=== PATIENT | female | born 1965 | race Caucasian/White ===

== ENCOUNTER 2016-11-13 10:11 | Emergency (ER) | payer OTHER ==
[~2016-11-13] VITALS: Ht 160 cm; Wt 126.1 kg
[~2016-11-13 10:11] MED LIST: ALDACTONE25 MG; ALDACTONE25 MG PO; BACTRIMDS PO; BENADRYL25 M3 PO; CARDIZEM60 M1 PO; CIPRO500 MG; CIPRO500 MG PO; CYMBALTA60 MG PO; DIAVAN PO; DIOVAN PO; DIOVAN320 MG PO; DIOVAN40 MG; DUONEB 3 MG/3 ML3 ML IH; DURAGESIC50 MCG/HR TD; FUROSEMIDE40 M1 PO; GABAPENTIN600 MG PO; GAVAPENTIN PO; HYDROCODONE BIT PO; LAMICTAL100 M1; LAMICTAL200 MG PO; LASIX; LASIX PO; LASIX40 M1; NORCO 10/325 MG1 TAB PO; PRADAXA150 MG PO; PREDNISOLONE PO; PREDNISONE20 M1 PO; PREDNISONE25 MG; PROAIR HFA0.09 MG/Ac IH; PROTONIX40 MG PO; PROZAC20 MG PO; SEPTRA 200 MG/480 ML; SIMBALTA PO; SINGULAIR10 MG PO; SINGULAIR5 MG; SUBOXONE 8 MG-21 FIL SL; XARELTO15 MG PO; XOPENEX0.63 MG/3 INH; XOPENEX1.25 MG/0. INH
[2016-11-13 10:23] VITALS: BP 132/68
[2016-11-13] MEDS ORDERED: DIOVAN160 M1 PO (10:28)
[2016-11-13] MEDS ORDERED: CATAPRES0.2 MG PO (10:28)
--- NOTE | 2016-11-13 10:29 | NUR ---
Patient ambulated to bed 6. RN evaluating patient at bedside.
--- NOTE | 2016-11-13 10:30 | NUR ---
PATIENT PRESENTS TO ED WITH C/O HEADACHE, N/V, CLAMMY SKIN, AND HYPERTENSION . PT STATES . DENIES COUGH, DIARRHEA, NO CP SKIN IS PINK/COOL AND CLAMMY; AAOX4 WITH EVEN AND STEADY GAIT; LUNGS CLEAR BL; HR TACHY; PT DENIES ANY FEVER, CP, SOB, OR COUGH AT THIS TIME; PATIENT STATES PAIN OF 10/10 AT THIS TIME; VSS; PATIENT POSITIONED FOR COMFORT; HOB ELEVATED; BEDRAILS UP X2; BED DOWN. ER MD MADE AWARE OF PT STATUS.
[2016-11-13] MEDS ORDERED: LORazepam 2 MG/ML VIAL IM ONE (11:10)
[2016-11-13] MEDS ORDERED: ONDANSETRON 4 MG ODT PO ONE (11:25)
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
--- NOTE | 2016-11-13 12:24 | NUR ---
Dr. Greer re-evaluating patient at bedside.
[2016-11-13] MEDS ORDERED: DIAZEPAM PFS 10 MG/2 ML SYR IM ONE (12:25)
--- NOTE | 2016-11-13 12:32 | NUR ---
PT CONTINUES TO FEEL ANXIOUS---TAPPING FEET REPEATEDLY, ADMITS TO FEELING SEVERELY ANXIOUS
--- NOTE | 2016-11-13 12:40 | NUR ---
MEDICATED WRITTEN, WILL CONTINUE TO OBSERVE FOR CHANGES IN ANXIETY AND CONTRERAS
[2016-11-13 14:24] VITALS: BP 126/81
--- NOTE | 2016-11-13 14:24 | NUR ---
Patient discharged with v/s stable. Written and verbal after care instructions given and explained. Patient alert, oriented and verbalized understanding of instructions. Ambulatory with steady gait. All questions addressed prior to discharge. ID band removed. Patient advised to follow up with PMD. Rx of VALIUM given. Patient educated on indication of medication including possible reaction and side effects. Opportunity to ask questions provided and answered.
== END 2016-11-13 14:24 | disposition home or self-care (01) ==
LOC: MED 10:33
DX: F41.0 Panic disorder [episodic paroxysmal anxiety] (principal); J45.909 Unspecified asthma, uncomplicated; J44.9 Chronic obstructive pulmonary disease, unspecified; K21.9 Gastro-esophageal reflux disease without esophagitis; I11.0 Hypertensive heart disease with heart failure; I50.9 Heart failure, unspecified; Z88.0 Allergy status to penicillin; Z88.1 Allergy status to other antibiotic agents; Z88.6 Allergy status to analgesic agent; Z88.8 Allergy status to other drugs, medicaments and biological substances; Z79.899 Other long term (current) drug therapy
CPT/HCPCS: 82948; 96372; 99284; J2060; J3360; S0119

== ENCOUNTER 2016-11-16 09:05 | Inpatient (IN) | payer OTHER ==
[~2016-11-16] VITALS: Ht 160 cm; Wt 125.6 kg
[~2016-11-16 09:05] MED LIST changes: +ALBU-136 IH; -ALDACTONE25 MG; -ALDACTONE25 MG PO; -BACTRIMDS PO; -BENADRYL25 M3 PO; -CARDIZEM60 M1 PO; -CIPRO500 MG; -CIPRO500 MG PO; +CLON0.2T43 PO; -CYMBALTA60 MG PO; -DIAVAN PO; +DILT60TA55 PO; -DIOVAN PO; -DIOVAN320 MG PO; -DIOVAN40 MG; +DIPH25TA53 PO; -DUONEB 3 MG/3 ML3 ML IH; -DURAGESIC50 MCG/HR TD; +FLUO-387 PO; -FUROSEMIDE40 M1 PO; -GABAPENTIN600 MG PO; -GAVAPENTIN PO; -HYDROCODONE BIT PO; +LAM200 PO; -LAMICTAL100 M1; -LAMICTAL200 MG PO; -LASIX; -LASIX PO; -LASIX40 M1; +MONT10TA35 PO; -NORCO 10/325 MG1 TAB PO; -PRADAXA150 MG PO; -PREDNISOLONE PO; -PREDNISONE20 M1 PO; -PREDNISONE25 MG; -PROAIR HFA0.09 MG/Ac IH; -PROTONIX40 MG PO; -PROZAC20 MG PO; -SEPTRA 200 MG/480 ML; -SIMBALTA PO; -SINGULAIR10 MG PO; -SINGULAIR5 MG; -SUBOXONE 8 MG-21 FIL SL; +VALS160T2 PO; -XARELTO15 MG PO; -XOPENEX0.63 MG/3 INH; -XOPENEX1.25 MG/0. INH
[2016-11-16 09:20] VITALS: BP 161/94
--- NOTE | 2016-11-16 09:30 | NUR ---
PATIENT PRESENTS TO ED WITH C/O VOMITING AND DIARRHEA X LATE LAST NIGHT; DIZZINESS; ; SKIN IS PINK/WARM/DRY; AAOX4 WITH EVEN AND STEADY GAIT; LUNGS CLEAR BL; HR EVEN AND REGULAR; PT DENIES ANY FEVER, CP, SOB, OR COUGH AT THIS TIME; PATIENT STATES PAIN OF 6/10 AT THIS TIME; VSS; PATIENT POSITIONED FOR COMFORT; HOB ELEVATED; BEDRAILS UP X2; BED DOWN. ER MD MADE AWARE OF PT STATUS.
[2016-11-16] MEDS ORDERED: NACL 0.9% 1,000 ML IV SCH (09:53)
[2016-11-16] MEDS ORDERED: ONDANSETRON 4 MG/2 ML VIAL IVP ONE ×2 (09:55→10:55)
[2016-11-16] MEDS ORDERED: FAMOTIDINE 20 MG/2 ML VIAL IVP ONE (09:55)
[2016-11-16 10:27] LABS: BASOPHILS # (AUTO) 0.1 K/uL (0.00-0.22); BASOPHILS % (AUTO) 1.1 % (0.0-2.0); EOSINOPHILS # (AUTO) 0.2 K/uL (0-0.4); EOSINOPHILS % (AUTO) 1.7 % (0.0-4.0); HEMATOCRIT 46.3 % (36-48); HEMOGLOBIN 14.8 g/dL (12.0-16.0); LYMPHOCYTES # (AUTO) 1.4 K/uL (2.5-16.5); LYMPHOCYTES % (AUTO) 11.2 % (20.5-51.1); MEAN CORPUSCULAR HEMOGLOBIN 26 pg (27-31); MEAN CORPUSCULAR HGB CONC 32 g/dL (33-37); MEAN CORPUSCULAR VOLUME 80 fL (80-94); MONOCYTES # (AUTO) 0.4 K/uL (0.8-1.0); MONOCYTES % (AUTO) 3.6 % (1.7-9.3); NEUTROPHILS # (AUTO) 10.1 K/uL (1.8-7.7); NEUTROPHILS % (AUTO) 82.4 % (42.2-75.2); PLATELET COUNT (AUTO) 277 K/uL (140-450); RED CELL DISTRIBUTION WIDTH 15.8 % (11.6-13.7)
[2016-11-16 10:31] LABS: ANION GAP 10.8 (8-16); CALCIUM 8.8 mg/dL (8.5-10.1); CARBON DIOXIDE 31.8 mmol/L (21-32); CREATININE 1.4 mg/dL (0.6-1.3); POTASSIUM 3.6 mmol/L (3.5-5.1)
[2016-11-16 10:37] LABS: ALBUMIN 3.7 g/dL (3.4-5.0); MAGNESIUM 2.1 mg/dL (1.8-2.4); TOTAL BILIRUBIN 0.5 mg/dL (0.0-1.0); TOTAL PROTEIN, SERUM 8.1 g/dL (6.4-8.2)
[2016-11-16 10:45] LABS: WHITE BLOOD COUNT (AUTO) 12.2 K/uL (4.8-10.8)
--- NOTE | 2016-11-16 11:06 | NUR ---
PT C/O ABDOMINAL PAIN.POSITION TO COMFORT.DR DOWNING NOTIFIED.
[2016-11-16] MEDS ORDERED: NACL 0.9% 1,000 ML IV ONE (11:30)
[2016-11-16] MEDS ORDERED: MORPHINE SULFATE 4 MG/ML SYR IVP ONE (11:30)
--- NOTE | 2016-11-16 12:12 | NUR ---
AAO PT WITH STILL C/O N/V NOTIFIED
[2016-11-16] MEDS ORDERED: PROMETHAZINE 25 MG/ML VIAL IM ONE (12:15)
--- NOTE | 2016-11-16 12:20 | NUR ---
IM PHENERGAN GIVEN PER MD'S ORDER
--- NOTE | 2016-11-16 12:34 | NUR ---
LEFT HAND IV INFILTRATED, NOTIFIED, AWAITING ORDERS
--- NOTE | 2016-11-16 12:55 | NUR ---
TALKED TO JOSIANE MADE AWARE PT STILL VERY NAUSEOUS, ANXIOUS, RESTLESS AND MOANING, AT BEDSIDE, WENT TO BEDSIDE AND TALKED TO PT AND .
--- NOTE | 2016-11-16 13:01 | NUR ---
PT IN BEDPAN AT THIS TIME PT AWARE NEED URINE
--- NOTE | 2016-11-16 13:20 | NUR ---
UNABLE TO PROVIDE URINE AT THIS TIME, NOTIFIED
--- NOTE | 2016-11-16 13:20 | NUR ---
REPORT GIVEN TO TORRES MORRISON
[2016-11-16 13:30] VITALS: BP 168/116
--- NOTE | 2016-11-16 13:30 | NUR ---
PT ARRIVED TO UNIT VIA GURNEY. PT AMBULATED TO BED WITH STEADY GAIT. PT IS AAOX4, PT ON ROOM AIR WITH NO S/S OF DISTRESS NOTED. IV TO RIGHT FA #24, PATENT AND INTACT. PT FEELING NAUSEATED. NO PAIN INDICATED. ALL SAFETY PRECAUTIONS IN PLACE, SIDE RAILSX2, BED IN LOW POSITION, AND CALL LIGHT WITHIN REACH. WILL CONTINUE TO MONITOR.
--- NOTE | 2016-11-16 13:30 | NUR ---
Patient will be admitted to care of DR CAMACHO. Admited to [facility]. Will go to room 111B. Belongings list completed. Report to TORRES MIRANDA.
[2016-11-16] MEDS ORDERED: ONDANSETRON 4 MG/2 ML VIAL IVP PRN (13:45)
[2016-11-16] MEDS ORDERED: HYDROmorphone 1 MG/ML AMP IVP PRN (13:45)
[2016-11-16] MEDS ORDERED: ALBUTEROL 0.083% 2.5 MG/3 ML NEBU INH PRN (13:45)
--- NOTE | 2016-11-16 13:50 | NUR ---
PAGED DR CAMACHO, AWAITING CALLBACK.
[2016-11-16] MEDS: POTASSIUM CHL 10 MEQ/D5-1/2NS 1,000 ML IV SCH ×2 (14:03→23:45)
--- NOTE | 2016-11-16 14:08 | NUR ---
PT TOLERATED IV FLUIDS WELL.
--- NOTE | 2016-11-16 14:31 | NUR ---
TALKED TO DR CAMACHO, WILL FOLLOW UP ON ORDERS.
[2016-11-16] MEDS ORDERED: MORPHINE SULFATE 4 MG/ML SYR IVP PRN (14:35)
[2016-11-16] MEDS: PROMETHAZINE 25 MG/ML VIAL IVP PRN ×2 (14:52→21:02)
[2016-11-16] MEDS: LORazepam 2 MG/ML VIAL IVP PRN (15:00)
--- NOTE | 2016-11-16 15:04 | NUR ---
PT C/O NAUSEA AND VOMITING. PT ANXIOUS AND CRYING. ADMINISTERED PHENERGAN AND ATIVAN ORDERED. WILL CONTINUE TO MONITOR.
--- NOTE | 2016-11-16 15:24 | NUR ---
PT C/O 06/21. BP 158/85, HR 113. ADMINISTERED MORPHINE ORDERED.
[2016-11-16 16:00] VITALS: BP 148/84
--- NOTE | 2016-11-16 16:27 | NUR ---
PT SLEEPING NO DISTRESS NOTED.
--- NOTE | 2016-11-16 17:00 | NUR ---
PT CONTINUES TO VOMIT AND COMPLAINS OF NAUSEA. WILL PAGE DR CAMACHO.
--- NOTE | 2016-11-16 17:10 | NUR ---
TALKED TO DR CAMACHO, NO OTHER MEDICATIONS TO BE GIVEN. MD ORDERED BRAT DIET TO BE STARTED. WILL FOLLOW UP ON ORDERS.
--- NOTE | 2016-11-16 17:30 | NUR ---
DR VIGIL IN TO SEE PT.
[2016-11-16] MEDS ORDERED: METOCLOPRAMIDE 10 MG/2 ML INJ VIAL IVP PRN (17:55)
[2016-11-16] MEDS ORDERED: NACL 0.9% IVP SCH (18:11)
[2016-11-16] MEDS ORDERED: METOCLOPRAMIDE IVP SCH (18:11)
--- NOTE | 2016-11-16 18:29 | NUR ---
NURSE CALLED TO BEDSIDE. PT VOMITED ON BED SHEETS, SHEETS TO BE CHANGED.
--- NOTE | 2016-11-16 18:50 | NUR ---
RADIOLOGY IN TO SEE PT.
--- NOTE | 2016-11-16 19:36 | NUR ---
ENDORSED CARE TO TORRES AMARAL. PT IN STABLE CONDITION.
--- NOTE | 2016-11-16 19:37 | NUR ---
RECEIVED PT IN STABLE CONDITION FROM RUBEN Ward RN. NO SOB, NO SIGNS OF DISTRESS. IV TO RT FA 24G PATENT, ASYMPTOMATIC, INTACT, IVF RUNNING. PT WITH 200 ML EMESIS. SKIN IS INTACT. PT IS AOX4, AMBULATORY. PT C/O PAIN IN ABDOMEN AND REQUESTING PHENERGAN, WILL MEDIATE PER MD ORDER. EDUCATED PT THAT WE NEED A URINE SAMPLE, PT VERBALIZED UNDERSTANDING. PLAN OF CARE DISCUSSED WITH PT. SAFETY MEASURES IN PLACE. CALL LIGHT WITHIN REACH. WILL CONTINUE TO MONITOR.
[2016-11-16] MEDS ORDERED: MONTELUKAST SODIUM 10 MG TAB PO SCH (21:00)
[2016-11-16] MEDS: VALSARTAN 80 MG TAB PO SCH (21:03)
[2016-11-16] MEDS: DILTIAZEM 60 MG TAB PO SCH (21:03)
--- NOTE | 2016-11-16 21:03 | NUR ---
PT TOLERATED DUE MEDS WELL. MEDICATED PT WITH BENADRYL AND PHENERGAN PRN PER MD ORDER. NO SOB, NO SIGNS OF DISTRESS. IV SITE ASYMPTOMATIC, INTACT, PATENT, FLUSHED, IVF RUNNING. PLAN OF CARE DISCUSSED WITH PT. SAFETY MEASURES IN PLACE. CALL LIGHT WITHIN REACH. WILL CONTINUE TO MONITOR.
--- NOTE | 2016-11-16 21:48 | NUR ---
FOUND PT WITH IV PULLED OUT, PT C/O IV SITE HURTING, MINIMAL BLEEDING NOTED, APPLIED DRESSING. ATTEMPTED TO START NEW IV WITH NO SUCCESS, NOTIFIED CUT ROLL MACHINE OFFBEARER LINDA, STATED SHE WILL TRY TO START AN IV FOR PT LATER.
--- NOTE | 2016-11-16 23:00 | NUR ---
FILLING STATION ATTENDANT MIKAELA ABLE TO GAIN IV ACCESS TO LT UPPER ARM 24G PATENT, ASYMPTOMATIC, INTACT, STARTED IVF RUNNING. PT C/O HEADACHE AND REQUESTING ATIVAN AND IBUPROFEN, PT MADE AWARE THAT ATIVAN IS NOT DUE UNTIL 299. TOLD PT I WILL PAGE MD PER PTS REQUEST FOR MEDS.
--- NOTE | 2016-11-16 23:06 | NUR ---
SPOKE WITH MD DOUG MD MADE AWARE OF PT C/O SEVERE HEADACHE AND REQUESTING IBUPROFEN AND MD AASHISH GAVE ORDER FOR IBUPROFEN. WILL CARRY OUT.
[2016-11-16] MEDS ORDERED: IBUPROFEN 800 MG TAB PO PRN (23:10)
[2016-11-17] VITALS: BP 150/80
--- NOTE | 2016-11-17 00:08 | NUR ---
VS STABLE ON ROOM AIR. NO SOB, NO SIGNS OF DISTRESS. IV SITE ASYMPTOMATIC, INTACT, PATENT, IVF RUNNING. PLAN OF CARE DISCUSSED WITH PT. SAFETY MEASURES IN PLACE. CALL LIGHT WITHIN REACH. WILL CONTINUE TO MONITOR.
--- NOTE | 2016-11-17 02:00 | NUR ---
PT C/O ABD PAIN AND REQUESTED ZOFRAN AND ATIVAN, TOLD PT SHE DOES NOT HAVE ZOFRAN, BUT HAS PHENERGAN AND ATIVAN DUE AT 0300 AND THAT I WILL BRING IT TO HER WHEN DUE, PT VERBALIZED UNDERSTANDING. NO SOB, IV SITE ASYMPTOMATIC, INTACT, PATENT, IVF RUNNING. PLAN OF CARE DISCUSSED WITH PT. SAFETY MEASURES IN PLACE. CALL LIGHT WITHIN REACH. WILL CONTINUE TO MONITOR.
[2016-11-17] MEDS: LORazepam 2 MG/ML VIAL IVP PRN ×2 (03:07→18:10)
[2016-11-17] MEDS: PROMETHAZINE 25 MG/ML VIAL IVP PRN ×2 (03:07→18:09)
--- NOTE | 2016-11-17 03:07 | NUR ---
MEDICATED PT FOR RESTLESSNESS AND NAUSEA PER MD ORDER. PT TOLERATED WELL. NO SOB, NO SIGNS OF DISTRESS. IV SITE ASYMPTOMATIC, INTACT, PATENT, IVF RUNNING. PLAN OF CARE DISCUSSED WITH PT. SAFETY MEASURES IN PLACE. CALL LIGHT WITHIN REACH. WILL CONTINUE TO MONITOR.
--- NOTE | 2016-11-17 03:34 | NUR ---
PT KEEPS TURNING OFF IV PUMP, REQUESTED PT NOT TO TOUCH OR TURN OFF IV PUMP. PT STATED IT KEEPS BEEPING AND THAT IS WHY SHE KEEPS TURNING IT OFF. EDUCATED PT NOT TO APPLY PRESSURE TO HER ARM AND IT WILL NOT OCCLUDE IV PUMP. PT VERBALIZED UNDERSTANDING.
[2016-11-17 06:34] LABS: HEMATOCRIT 45.8 % (36-48); HEMOGLOBIN 14.6 g/dL (12.0-16.0); MEAN CORPUSCULAR HEMOGLOBIN 26 pg (27-31); MEAN CORPUSCULAR HGB CONC 32 g/dL (33-37); MEAN CORPUSCULAR VOLUME 82 fL (80-94); PLATELET COUNT (AUTO) 257 K/uL (140-450); RED BLOOD CELL COUNT(AUTO) 5.61 MIL/uL (4.20-5.40); RED CELL DISTRIBUTION WIDTH 15.9 % (11.6-13.7); WHITE BLOOD COUNT (AUTO) 14.6 K/uL (4.8-10.8)
[2016-11-17 06:48] LABS: ALBUMIN 3.5 g/dL (3.4-5.0); ANION GAP 10.6 (8-16); CALCIUM 8.8 mg/dL (8.5-10.1); CARBON DIOXIDE 31.1 mmol/L (21-32); POTASSIUM 3.7 mmol/L (3.5-5.1); TOTAL BILIRUBIN 0.6 mg/dL (0.0-1.0); TOTAL PROTEIN, SERUM 7.8 g/dL (6.4-8.2)
[2016-11-17 07:04] LABS: BAND % (MANUAL) 2 % (0-8); LYMPHOCYTES % (MANUAL) 16 % (20-46); MONOCYTES % (MANUAL) 6 % (5-12); NEUTROPHILS % (MANUAL) 76 (43-65)
--- NOTE | 2016-11-17 07:05 | NUR ---
ENDORSED PT IN STABLE CONDITION TO TORRES BELTRAN. ALL NEEDS HAVE BEEN MET AT THIS TIME.
--- NOTE | 2016-11-17 07:10 | NUR ---
RECEIVED REPORT FROM LEAD LEVEL DESIGNER RN. PT IS SLEEPING. NO S/S OF ACUTE CARDIAC/RESPIRATORY DISTRESS OR DISCOMFORT. SAFETY MEASURES IN PLACE, CALL LIGHT WITHIN REACH. WILL CONTINUE PLAN OF CARE, AND CONTINUE TO MONITOR.
[2016-11-17 08:00] VITALS: BP 169/99
--- NOTE | 2016-11-17 08:35 | NUR ---
PATIENT HAS BEEN SCREENED AND CATEGORIZED HIGH NUTRITION RISK. PATIENT WILL BE SEEN WITHIN 1-2 DAYS OF ADMISSION. 11/17/16-11/18/[address]
[2016-11-17] MEDS ORDERED: FAMOTIDINE 20 MG/2 ML VIAL IV SCH (09:00)
[2016-11-17] MEDS ORDERED: FLUoxetine 20 MG CAP PO SCH (09:00)
[2016-11-17] MEDS ORDERED: ENOXAPARIN 40 MG/0.4 ML SYR SUBQ SCH (09:00)
[2016-11-17] MEDS: POTASSIUM CHL 10 MEQ/D5-1/2NS 1,000 ML IV SCH (09:45)
[2016-11-17] MEDS: VALSARTAN 80 MG TAB PO SCH (09:50)
[2016-11-17] MEDS: DILTIAZEM 60 MG TAB PO SCH (09:50)
[2016-11-17] MEDS: MORPHINE SULFATE 4 MG/ML SYR IVP PRN ×2 (09:51→18:09)
[2016-11-17] MEDS: ONDANSETRON 4 MG/2 ML VIAL IVP PRN ×2 (09:51→18:10)
--- NOTE | 2016-11-17 10:00 | NUR ---
PT TOLERATED AM MEDS WELL. NO S/S OF ACUTE DISTRESS OR DISCOMFORT. CALL LIGHT WITHIN REACH, WILL CONTINUE TO MONITOR.
--- NOTE | 2016-11-17 12:19 | NUR ---
11/17/16 RD INITIAL ASSESSMENT COMPLETED PLEASE REFER TO NUTRITION ASSESSMENT UNDER CARE ACTIVITY FOR ESTIMATED NUTRITIONAL NEEDS. RD RECOMMENDATIONS: 1. CONTINUE NPO MEDICALLY NECESSARY PER MD 2. WHEN MEDICALLY APPROPRIATE CONSIDER ADVANCE DIET TOLERATED TO SOFT, CARDIAC D/T GI ISSUES 3. RD WILL F/U 3-5 DAYS; MODERATE RISK. RHEA SEARS RD
--- NOTE | 2016-11-17 13:30 | NUR ---
PT IS RESTING. PT HAS NO S/S OF ACUTE DISTRESS OR DISCOMFORT. CALL LIGHT WITHIN REACH. WILL CONTINUE TO MONITOR.
[2016-11-17] MEDS ORDERED: diphenhydrAMINE 50 MG/ML VIAL ONE (13:52)
[2016-11-17] MEDS ORDERED: fentaNYL 0.05 MG/ML VIAL ONE (13:52)
[2016-11-17] MEDS ORDERED: MIDAZOLAM 2 MG/2 ML VIAL ONE (13:52)
[2016-11-17] MEDS ORDERED: MIDAZOLAM 2 MG/2 ML VIAL IVP ONE ×2 (14:45→14:50)
[2016-11-17] MEDS ORDERED: fentaNYL 0.05 MG/ML VIAL IVP ONE (14:45)
[2016-11-17] MEDS ORDERED: diphenhydrAMINE 50 MG/ML VIAL IVP ONE (14:45)
[2016-11-17 16:30] VITALS: BP 151/99
--- NOTE | 2016-11-17 16:30 | NUR ---
SS NOTE: PER MAXIME FROM [facility] ([phone]), THEY ARE ABLE TO ACCEPT PT AND WILL SEND A NURSE TO SEE PT AT HOME TOMORROW.
--- NOTE | 2016-11-17 17:00 | NUR ---
PT AND AWARE OF HOME HEALTH SERVICE, [facility], FOR TOMORROW. PT DOES NOT FEEL COMFORTABLE TO GO HOME. PT STATES SHE CONTINUES TO VOMIT AND CAN NOT TOLERATE LIQUIDS. DR CAMACHO MADE AWARE AND INFORMED THE PATIENT OF INSURANCE MOST LIKELY WILL NOT COVER COST DUE TO DISCHARGE ORDER. RECOMMENDED TO DR CAMACHO TO HOLD DISCHARGE UNTIL TOMORROW, DR CAMACHO REFUSED. PT AWARE AND WILL GO HOME TODAY.
--- NOTE | 2016-11-17 19:10 | NUR ---
DISCHARGE INSTRUCTION PROVIDED, PT VERBALIZED UNDERSTANDING. DISCHARGE PAPERWORK SIGNED, PROVIDED A COPY. ARM BANDS REMOVED, IV REMOVED, INTACT. NO S/S OF ACUTE DISTRESS OR DISCOMFORT. PT IN STABLE CONDITION. PT WHEELCHAIRED TO FRONT LOBBY.
== END 2016-11-17 19:10 | disposition home health service (06) | DRG 392 ==
LOC: MED 09:05 → MTU 13:08
PROVIDERS: ADMIT Family Medicine; ATTEND Family Medicine
PROC: 0DB68ZX Excision of Stomach, Via Natural or Artificial Opening Endoscopic, Diagnostic (ICD-10-PCS; principal; 2016-11-17 14:15)
DX: K29.60 Other gastritis without bleeding (principal); N17.9 Acute kidney failure, unspecified; Z68.42 Body mass index [BMI] 45.0-49.9, adult; I13.0 Hypertensive heart and chronic kidney disease with heart failure and stage 1 through stage 4 chronic kidney disease, or unspecified chronic kidney disease; I50.32 Chronic diastolic (congestive) heart failure; N18.9 Chronic kidney disease, unspecified; D72.829 Elevated white blood cell count, unspecified; G89.4 Chronic pain syndrome; E66.01 Morbid (severe) obesity due to excess calories; G47.33 Obstructive sleep apnea (adult) (pediatric); J44.9 Chronic obstructive pulmonary disease, unspecified; J45.909 Unspecified asthma, uncomplicated; M54.5 Low back pain; K44.9 Diaphragmatic hernia without obstruction or gangrene; K21.0 Gastro-esophageal reflux disease with esophagitis; F41.1 Generalized anxiety disorder; F12.90 Cannabis use, unspecified, uncomplicated; W18.30XA Fall on same level, unspecified, initial encounter; Y93.89 Activity, other specified; Y92.89 Other specified places as the place of occurrence of the external cause; Y99.8 Other external cause status; Z88.1 Allergy status to other antibiotic agents; Z88.5 Allergy status to narcotic agent; Z88.0 Allergy status to penicillin; Z88.8 Allergy status to other drugs, medicaments and biological substances; Z91.09 Other allergy status, other than to drugs and biological substances; Z79.899 Other long term (current) drug therapy; Z90.49 Acquired absence of other specified parts of digestive tract; Z28.21 Immunization not carried out because of patient refusal
CPT/HCPCS: 36415; 74000; 80053; 82948; 83690; 83735; 85025; 86677; 87081; 93005; 96372; 96374; 96375; 99285; J1200; J1650; J2060; J2250; J2270; J2405; J2550; J2765; J3010; J3490; J7030; Q0163

== ENCOUNTER 2016-11-18 15:33 | Observation (INO) | payer OTHER ==
[~2016-11-18] VITALS: Ht 160 cm; Wt 125.6 kg
[~2016-11-18 15:33] MED LIST changes: -ALBU-136 IH; +ALDACTONE25 MG; +ALDACTONE25 MG PO; +BACTRIMDS PO; +BENADRYL25 M3 PO; +CARDIZEM60 M1 PO; +CATAPRES0.2 MG PO; +CIPRO500 MG; +CIPRO500 MG PO; -CLON0.2T43 PO; +CYMBALTA60 MG PO; +DIAVAN PO; -DILT60TA55 PO; +DIOVAN PO; +DIOVAN160 M1 PO; +DIOVAN320 MG PO; +DIOVAN40 MG; -DIPH25TA53 PO; +DUONEB 3 MG/3 ML3 ML IH; +DURAGESIC50 MCG/HR TD; -FLUO-387 PO; +FUROSEMIDE40 M1 PO; +GABAPENTIN600 MG PO; +GAVAPENTIN PO; +HYDROCODONE BIT PO; -LAM200 PO; +LAMICTAL100 M1; +LAMICTAL200 MG PO; +LASIX; +LASIX PO; +LASIX40 M1; -MONT10TA35 PO; +NORCO 10/325 MG1 TAB PO; +PRADAXA150 MG PO; +PREDNISOLONE PO; +PREDNISONE20 M1 PO; +PREDNISONE25 MG; +PROAIR HFA0.09 MG/Ac IH; +PROTONIX40 MG PO; +PROZAC20 MG PO; +SEPTRA 200 MG/480 ML; +SIMBALTA PO; +SINGULAIR10 MG PO; +SINGULAIR5 MG; +SUBOXONE 8 MG-21 FIL SL; -VALS160T2 PO; +XARELTO15 MG PO; +XOPENEX0.63 MG/3 INH; +XOPENEX1.25 MG/0. INH
[2016-11-18 15:49] VITALS: BP 156/137
--- NOTE | 2016-11-18 16:49 | NUR ---
PT TO BED 8 AT THIS TIME.
[2016-11-18] MEDS ORDERED: PROMETHAZINE 25 MG/ML VIAL IVP ONE ×2 (16:55→18:20)
[2016-11-18] MEDS ORDERED: NACL 0.9% 1,000 ML IV ONE (16:55)
--- NOTE | 2016-11-18 16:59 | NUR ---
51/F BIB TO ED PT STS WAS DISCHARGED FROM [facility] LAST NIGHT FOR HTN AND ABD PAIN. PT STATES SHE HAS BEEN VOMITING EVER SINCE LAST NIGHT WITH SEVERE ABD PAIN. GAGGING NOTED WITH ABD GUARDING. BOWEL SOUNDS HYPERACTIVE, SOFT AND ROUND. PT PLACED ON MONITOR. DR. SANCHES MADE AWARE.
--- NOTE | 2016-11-18 17:10 | NUR ---
20G IV TO LFA VIA ULTRASOUND IV. PT NICOLE WELL. AT BEDSIDE.
--- NOTE | 2016-11-18 17:51 | NUR ---
Patient being evaluated by physician at bedside.
--- NOTE | 2016-11-18 18:10 | NUR ---
PT LAYING ON IV. IV TO LFA INFILTRATE. DR. SANCHES MADE AWARE. IV DC'D. 20G IV TO RAC VIA ULTASOUND GUIDED IV. PT NICOLE WELL. NO S/S OF INFILTRATION. BLOOD DRAWN BACK, FLUSHES WELL. IV SECURED CIRCUMFERENTIALLY.
--- NOTE | 2016-11-18 18:45 | NUR ---
# 14 FR STRAIGHT catheter utilizing sterile technique. Immediate return of 100 ml ELIAN urine noted. Bedside drainage bag placed below level of bladder. Urine sample collected and sent to lab. Pt tolerated procedure WELL.
--- NOTE | 2016-11-18 19:29 | NUR ---
Patient will be admitted to care of DR. CAMACHO. Admited to TELE. Will go to room 118. Belongings list completed. Report to TORRES WAGNER.
--- NOTE | 2016-11-18 19:38 | NUR ---
PT ARRIVED TO UNIT IN ROOM 118. PT NOT ABLE TO WALK AT THIS TIME DUE TO C.O. ABDOMINAL PAIN. ASSISTED TO BED.
--- NOTE | 2016-11-18 19:45 | NUR ---
SHIFT ASSESSMENT DONE AT THIS TIME. PT IS A/O X4, NO ACUTE S/S OF DISTRESS. PT ABLE TO FOLLOW COMMANDS AND VERBALIZED NEEDS. DISCUSSED PLAN OF CARE WITH PT, VERBALIZED UNDERSTANDING. ORIENTED TO UNIT. VITAL SIGNS ARE STABLE, PT ON ROOM AIR WITH OXYGEN SATURATION AT 94%. PT C.O. ABDOMINAL PAIN, WILL ADMINISTER, SEE eMAR. NO NAUSEA OR VOMITING AT THIS TIME. LUNG SOUNDS ARE CLEAR, BOWEL SOUNDS ARE ACTIVE. IV ACCESS TO LEFT INDEX FINGER #24G, PATENT AND INTACT. SKIN NOTED INTACT, ONLY NOTED ABDOMINAL FOLD REDNESS, APPLIED INTER DRY. APPLIED SCD'S. SAFETY PRECAUTIONS IMPLEMENTED. CALL LIGHT WITHIN REACH. WILL CONTINUE TO MONITOR PT. ALLERGY AND ID BAND ON.
[2016-11-18 20:26] VITALS: BP 150/67
--- NOTE | 2016-11-18 20:33 | NUR ---
SPOKE TO DR. CAMACHO REGARDING PT AND ORDERS, NEW ORDERS RECEIVED.
[2016-11-18] MEDS ORDERED: LORazepam 2 MG/ML VIAL IVP PRN (20:35)
[2016-11-18] MEDS ORDERED: MORPHINE SULFATE 4 MG/ML SYR ONE (20:49)
[2016-11-18] MEDS ORDERED: INTERDRY CLOTH TP SCH (20:50)
[2016-11-18] MEDS: MORPHINE SULFATE 4 MG/ML SYR IVP PRN (20:50)
[2016-11-18] MEDS: NACL 0.45% 1,000 ML IV SCH (20:51)
[2016-11-18] MEDS: ONDANSETRON 4 MG/2 ML VIAL IVP PRN (22:40)
--- NOTE | 2016-11-18 22:40 | NUR ---
PROVIDED PT WITH ANTIEMETIC FOR NAUSEA, SEE eMAR.
[2016-11-19] VITALS: BP 140/72
--- NOTE | 2016-11-19 00:05 | NUR ---
PT VITAL SIGNS REMAIN STABLE. NO S/S OF ACUTE DISTRESS NOTED. CALL LIGHT WITHIN REACH.
--- NOTE | 2016-11-19 02:02 | NUR ---
PT NOTED SLEEPING AT THIS TIME, NO S/S OF ACUTE DISTRESS. CALL LIGHT WITHIN REACH.
[2016-11-19 04:00] VITALS: BP 149/77
--- NOTE | 2016-11-19 04:10 | NUR ---
PT VITAL SIGNS REMAIN STABLE. PT C.O. NAUSEA, WILL ADMINISTER ANTIEMETIC, SEE eMAR. CALL LIGHT WITHIN REACH. NO ACUTE DISTRESS.
[2016-11-19] MEDS: ONDANSETRON 4 MG/2 ML VIAL IVP PRN (04:18)
[2016-11-19] MEDS: MORPHINE SULFATE 4 MG/ML SYR IVP PRN (06:02)
[2016-11-19] MEDS: NACL 0.45% 1,000 ML IV SCH (06:03)
--- NOTE | 2016-11-19 06:10 | NUR ---
PROVIDED PT WITH PAIN MEDICATION, SEE eMAR.
--- NOTE | 2016-11-19 07:15 | NUR ---
ENDORSED PT TO KATERYNA RN AT BEDSIDE FOR CONTINUITY OF CARE.
--- NOTE | 2016-11-19 07:30 | NUR ---
RECEIVED PT RESTING COMFORTABLY IN BED, AAOX4, ABLE TO VERBALIZE NEEDS; NO COMPLAINTS OF PAIN, SOB, OR S/S ACUTE DISTRESS AT THIS TIME. ROUTINE/PLAN OF CARE DISCUSSED AND REVIEWED, PT VERBALIZES UNDERSTANDING AND COMPLIANCE. IVF INFUSING TO LEFT INDEX FINGER, SITE ASYMPTOMATIC. BILATERAL SCD'S NOTED. INTERDRY TO ABD FOLD REDNESS. SAFETY PRECAUTIONS OBSERVED AND MAINTAINED, ENCOURAGED PT TO CALL FOR ASSISTANCE NEEDED.
--- NOTE | 2016-11-19 07:51 | NUR ---
PATIENT HAS BEEN SCREENED AND CATEGORIZED HIGH NUTRITION RISK. PATIENT WILL BE SEEN WITHIN 1-2 DAYS OF ADMISSION. 11/19/16-11/20/[address]
[2016-11-19 08:00] VITALS: BP_SYST 103; BP_DIAS 59; BP_DIAS 73
--- NOTE | 2016-11-19 08:59 | NUR ---
VSS, PT RESTING QUIETLY. ADMINISTERED ROUTINE MEDICATION ORDERED WITH EDUCATION, PT TOLERATED WELL. PT WENT BACK TO SLEEP AT THIS TIME. ENCOURAGED TO CALL FOR ASSISTANCE NEEDED. WILL CONTINUE TO MONITOR.
[2016-11-19] MEDS ORDERED: PANTOPRAZOLE 40 MG INJ VIAL IVP SCH (09:00)
[2016-11-19] MEDS ORDERED: INTERDRY CLOTH TP PRN (10:55)
--- NOTE | 2016-11-19 10:58 | NUR ---
WOUND CARE EVALUATION NOTES: REASON FOR EVALUATION: ABDOMINAL FOLDS REDNESS COMPLETE SKIN ASSESSMENT DONE ON THIS 51 Y/O FEMALE PATIENT FROM HOME TO [facility], WITH INITIAL DIAGNOSIS OF INTRACTABLE VOMITING. PAST MEDICAL HISTORY INCLUDE ASTHMA, COPD, CHF, HYPERTENSION. ALL ABOVE INFORMATION WAS OBTAINED FROM THE ADMISSION H&P. LABS ARE WBC 11.2, H/H 14.1/43.7, GLUCOSE 107 AND ALBUMIN 3.2. CURRENT MEDS INCLUDE ATIVAN AND MORPHINE. PATIENT IS AWAKE, ORIENTED TO PERSON, PLACE, DATE AND TIME. SKIN WARM TO TOUCH WNL, TOENAILS WNL, NO EDEMA, WITH HAIR GROWTH AND +2 BILATERAL PEDAL PULSES. URINE AND BOWEL CONTINENT, ABLE TO AMBULATE TO THE RESTROOM CLAIMED. ABLE TO MAKE HER NEEDS KNOWN. ABLE TO TURN SELF WITHOUT ASSISTANCE. INITIAL PLAN OF CARE AND PRESSURE PREVENTIVE MEASURES DISCUSSED, ABLE TO VERBALIZE UNDERSTANDING. INTEGUMENTARY: BUE - MULTIPLE ECCHYMOSIS - SCATTERED PURPLE, SOME ARE FADING ABDOMINAL FOLDS - INTERTRIGINOUS DERMATITIS - RED AND MOIST RECOMMENDATIONS: -ABDOMINAL FOLDS: CLEANSE WITH MILD SOAP AND WATER, PAT DRY, APPLY INTERDRY CLOTH Q 7 DAYS AND PRN WITH SOILING/DISPLACEMENT. CHECK DRESSING PLACEMENT DAILY --TURN AND REPOSITION PATIENT Q2H -ASSESS AND MONITOR SKIN CONDITION DURING POSITION CHANGE, PLEASE PAY PARTICULAR ATTENTION TO SACRALCOCCYX, ELBOWS AND HEELS -OFFLOAD BILATERAL HEELS BY PLACING PILLOWS UNDER CALVES AT ALL TIMES, UNLESS OTHERWISE CONTRAINDICATED -KEEP SKIN CLEAN AND DRY AT ALL TIMES. RECOMMENDATIONS DISCUSSED WITH PRIMARY RN. NO FOLLOW UP NEEDED AT THIS TIME. PLEASE CONTACT [facility] FOR ANY CONCERNS, QUESTIONS AND CHANGES IN SKIN CONDITION.
--- NOTE | 2016-11-19 11:57 | NUR ---
11/19/16 RD INITIAL ASSESSMENT COMPLETED PLEASE REFER TO NUTRITION ASSESSMENT UNDER CARE ACTIVITY FOR ESTIMATED NUTRITIONAL NEEDS. RD RECOMMENDATIONS: 1. CONTINUE BRAT DIET TOLERATED PER MD 2. IF PT TOLERATING CURRENT DIET CONSIDER ADVANCE DIET TOLERATED TO REGULAR 3. RD WILL F/U 3-5 DAYS; MODERATE RISK. RHEA SEARS RD
[2016-11-19 12:00] VITALS: BP 103/59
--- NOTE | 2016-11-19 12:00 | NUR ---
VSS. NO COMPLAINTS OR S/S ACUTE DISTRESS.
--- NOTE | 2016-11-19 12:30 | NUR ---
PT SEEN AND ASSESSED BY DR CAMACHO AT BEDSIDE, DISCUSSED PT CONDITION AND DC PLAN. DC ORDERS ACKNOWLEDGED AND CARRIED OUT.
--- NOTE | 2016-11-19 14:00 | NUR ---
PT TOLERATED LUNCH WELL, NO C/O ABD PAIN OR N/V/D. CALLED PT'S AT THIS TIME PER PT REQUEST.
[2016-11-19 14:13] VITALS: BP 103/59
--- NOTE | 2016-11-19 14:50 | NUR ---
PT ARRIVED. DISCHARGE INSTRUCTIONS AND EDUCATION GIVEN AND DISCUSSED AT BEDSIDE, PT VERBALIZES UNDERSTANDING AND SIGNS ALL FORMS. PT PREPARING FOR DC.
--- NOTE | 2016-11-19 15:19 | NUR ---
DISCHARGED PT HOME AT THIS TIME IN STABLE CONDITION WITH .
== END 2016-11-19 15:20 | disposition home or self-care (01) ==
LOC: MED 15:33 → MTU 19:08
PROVIDERS: ADMIT Family Medicine; ATTEND Family Medicine
DX: R10.9 Unspecified abdominal pain (principal); R11.2 Nausea with vomiting, unspecified; D72.829 Elevated white blood cell count, unspecified; R31.29 Other microscopic hematuria; G89.4 Chronic pain syndrome; M54.5 Low back pain; E66.01 Morbid (severe) obesity due to excess calories; G47.33 Obstructive sleep apnea (adult) (pediatric); I50.32 Chronic diastolic (congestive) heart failure; I11.0 Hypertensive heart disease with heart failure
CPT/HCPCS: 36415; 71010; 80053; 80305; 81001; 83690; 85025; 87081; 87086; 96361; 96374; 96375; 96376; 99285; C9113; G0378; J2060; J2270; J2405; J2550; J7030

== ENCOUNTER 2016-11-23 11:12 | Outpatient (CLI) | payer OTHER | END 2016-11-23 22:32 | disposition home or self-care (01) | LOC: MLB 11:12 | PROVIDERS: ATTEND Family Medicine | DX: Z00.00 Encounter for general adult medical examination without abnormal findings (principal); R10.9 Unspecified abdominal pain; N28.9 Disorder of kidney and ureter, unspecified; R06.02 Shortness of breath ==

== ENCOUNTER 2018-02-28 04:39 | Emergency (ER) | payer OTHER, MEDICAID ==
[~2018-02-28 04:39] MED LIST changes: +ALBU-136 IH; -ALDACTONE25 MG; -ALDACTONE25 MG PO; -BACTRIMDS PO; -BENADRYL25 M3 PO; -CARDIZEM60 M1 PO; -CATAPRES0.2 MG PO; -CIPRO500 MG; -CIPRO500 MG PO; +CLON0.2T43 PO; -CYMBALTA60 MG PO; -DIAVAN PO; +DILT60TA55 PO; -DIOVAN PO; -DIOVAN160 M1 PO; -DIOVAN320 MG PO; -DIOVAN40 MG; +DIPH25TA53 PO; -DUONEB 3 MG/3 ML3 ML IH; -DURAGESIC50 MCG/HR TD; +FLUO-387 PO; -FUROSEMIDE40 M1 PO; -GABAPENTIN600 MG PO; -GAVAPENTIN PO; -HYDROCODONE BIT PO; +LAM200 PO; -LAMICTAL100 M1; -LAMICTAL200 MG PO; -LASIX; -LASIX PO; -LASIX40 M1; +MONT10TA35 PO; -NORCO 10/325 MG1 TAB PO; -PRADAXA150 MG PO; -PREDNISOLONE PO; -PREDNISONE20 M1 PO; -PREDNISONE25 MG; -PROAIR HFA0.09 MG/Ac IH; -PROTONIX40 MG PO; -PROZAC20 MG PO; -SEPTRA 200 MG/480 ML; -SIMBALTA PO; -SINGULAIR10 MG PO; -SINGULAIR5 MG; -SUBOXONE 8 MG-21 FIL SL; +VALS160T2 PO; -XARELTO15 MG PO; -XOPENEX0.63 MG/3 INH; -XOPENEX1.25 MG/0. INH
--- NOTE | 2018-02-28 04:40 | NUR ---
SEE DOWNTIME CHARTING.
[2018-02-28] MEDS ORDERED: ONDANSETRON 4 MG/2 ML VIAL ONE (05:14)
[2018-02-28] MEDS ORDERED: MORPHINE SULFATE 2 MG/ML SYR ONE (05:15)
[2018-02-28] MEDS ORDERED: MORPHINE SULFATE 4 MG/ML SYR ONE (05:16)
--- NOTE | 2018-02-28 06:00 | NUR ---
[facility] CHARTING BACK ONLINE
[2018-02-28] MEDS ORDERED: MORPHINE SULFATE 4 MG/ML SYR IVP ONE (06:25)
[2018-02-28] MEDS ORDERED: DICYCLOMINE HCL LIQUID 20 MG, ALUMINUM HYD/MAG/SIMETHICONE 30 ML, LIDOCAINE VISCOUS 2% ... PO ONE ×3 (06:25)
[2018-02-28 06:28] LABS: RED BLOOD CELL COUNT(AUTO) 5.51 MIL/uL (4.20-5.40); WHITE BLOOD COUNT (AUTO) 11.6 K/uL (4.8-10.8)
[2018-02-28 06:29] LABS: ANION GAP 12.5 (8-16); BASOPHILS % (AUTO) 0.2 % (0.0-2.0); EOSINOPHILS % (AUTO) 0.6 % (0.0-4.0); HEMATOCRIT 45.2 % (36-48); LYMPHOCYTES % (AUTO) 9.8 % (20.5-51.1); MEAN CORPUSCULAR HEMOGLOBIN 27 pg (27-31); MEAN CORPUSCULAR HGB CONC 33 g/dL (33-37); MEAN CORPUSCULAR VOLUME 82.2 fL (80-94); MONOCYTES % (AUTO) 3.5 % (1.7-9.3); NEUTROPHILS # (AUTO) 9.9 K/uL (1.8-7.7); NEUTROPHILS % (AUTO) 85.9 % (42.2-75.2); PLATELET COUNT (AUTO) 207 K/uL (140-450); POTASSIUM 3.5 mmol/L (3.5-5.1); RED CELL DISTRIBUTION WIDTH 16.4 % (11.6-13.7)
[2018-02-28 06:30] LABS: APPEARANCE,URINE HAZY (CLEAR); COLOR,URINE YELLOW (YELLOW)
[2018-02-28 06:30] LABS: ALBUMIN 3.5 g/dL (3.4-5.0); CREATININE 0.8 mg/dL (0.6-1.3); EOSINOPHILS # (AUTO) 0.1 K/uL (0-0.4); LYMPHOCYTES # (AUTO) 1.1 K/uL (2.5-16.5); MONOCYTES # (AUTO) 0.4 K/uL (0.8-1.0); TOTAL BILIRUBIN 0.6 mg/dL (0.0-1.0)
[2018-02-28 06:31] LABS: BILIRUBIN,URINE NEGATIVE (NEGATIVE); BLOOD, URINE TRACE (NEGATIVE); LEUKOCYTE ESTERASE ,URINE NEGATIVE (NEGATIVE); NITRITE, URINE POSITIVE (NEGATIVE); UGLUCOSE NEGATIVE (NEGATIVE)
[2018-02-28 06:31] LABS: PROTHROMBIN TIME 11.6 secs (10.8-13.4)
[2018-02-28 06:32] LABS: RBC,URINE 3-10 (FEW) /HPF (0-5); WBC,URINE 0-5 (RARE) /HPF (0-5)
--- NOTE | 2018-02-28 06:50 | NUR ---
DR BENNETT AT BEDSIDE FOR ULTRA-SOUND ASSISTED IV INSERTION. 20G IV INSERTED SUCCESSFULLY ON L AC. PT TOLERATED WELL.
--- NOTE | 2018-02-28 06:54 | NUR ---
PT TAKEN TO CT AT THIS TIME
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
--- NOTE | 2018-02-28 07:16 | NUR ---
RECEIVED REPORT FROM TORRES ATWOOD. TRANSFER OF CARE AT THIS TIME.
--- NOTE | 2018-02-28 07:22 | NUR ---
PT. BACK FROM CT , AMBULATED TO RESTROOM, IN BED RESTING, SAFETY PRECAUTIONS IN PLACE. B/P 186/104, ER NOTIFIED, NO FURTHER ORDERS AT THIS TIME WILL CONTINUE TO MONITOR.
[2018-02-28 08:02] LABS: BARBITURATE, URINE NEG. ng/ml (NEG <=200); BENZODIAZEPINE, URINE POS. ng/mL (NEG <=200); CANNABINOID, URINE POS. ng/mL (NEG <=50); COCAINE, URINE NEG. ng/mL (NEG <=300); OPIATE, URINE NEG. ng/mL (NEG <=2000); PHENCYCLIDINE SCREEN,URINE NEG. ng/mL (NEG <=25)
--- NOTE | 2018-02-28 08:30 | NUR ---
PT. RESTING COMFORTABLY IN BED, RR EVEN AND UNLABORED. BED IN LOWEST POSITION. WILL CONTINUE TO MONITOR.
[2018-02-28 08:45] VITALS: BP 190/99
--- NOTE | 2018-02-28 08:45 | NUR ---
Patient discharged with v/s B/P , DR. BENNETT NOTIFIED, Opal BUCIO MD TO DISCHARGE, PRESENT TO DRIVE HOME. Written and verbal after care instructions given and explained, TO PATIENT AND . Patient alert, oriented and verbalized understanding of instructions. Wheel Chair Assisted with to car. All questions addressed prior to discharge. ID band removed. Patient advised to follow up with PMD. Rx KEFLEX, TRAMADOL, AND PROTONIX of given. Patient educated on indication of medication including possible reaction and side effects. Opportunity to ask questions provided and answered.
== END 2018-02-28 08:45 | disposition home or self-care (01) ==
LOC: MED 04:39
DX: N39.0 Urinary tract infection, site not specified (principal); N28.1 Cyst of kidney, acquired; K57.30 Diverticulosis of large intestine without perforation or abscess without bleeding; J45.909 Unspecified asthma, uncomplicated; I11.0 Hypertensive heart disease with heart failure; I50.9 Heart failure, unspecified; K21.9 Gastro-esophageal reflux disease without esophagitis; Z90.49 Acquired absence of other specified parts of digestive tract; Z88.0 Allergy status to penicillin; Z88.1 Allergy status to other antibiotic agents; Z88.8 Allergy status to other drugs, medicaments and biological substances
CPT/HCPCS: 36415; 74177; 80053; 80305; 81001; 83690; 84703; 85025; 85610; 85730; 87086; 96374; 99285; J2270; J2405; Q9967

== ENCOUNTER 2019-03-04 12:24 | Emergency (ER) | payer MEDICAID, OTHER ==
[~2019-03-04] VITALS: Ht 162.6 cm; Wt 126.1 kg
[2019-03-04 12:29] VITALS: BP 220/100
--- NOTE | 2019-03-04 12:29 | NUR ---
TO BED # 12 AMBULATORY
[2019-03-04] MEDS ORDERED: ONDANSETRON 4 MG ODT PO ONE ×2 (12:35→14:25)
[2019-03-04] MEDS ORDERED: KETOROLAC 60 MG/2 ML VIAL IM ONE (12:35)
--- NOTE | 2019-03-04 12:45 | NUR ---
PT IS SCREAMING IN BED 12. AT BEDSIDE. PT CRYING AND YELLING, STANDING AT SIDE OF BED ASKING TO SPEAK WITH ERMD FIRST. LAB AT BEDSIDE FOR BLOOD DRAW.
--- NOTE | 2019-03-04 12:50 | NUR ---
BIB . AAOX4 C/O SHARP PAIN TO LEFT SIDE OF ABDOMEN, N/V, DIARRHEA STARTED AT 0830HOURS. ABDOMEN NON TENDER TO TOUCH. PT DENIES SOB. PT IS CRYING FROM PAIN. ER TO EVALUATE PT.
--- NOTE | 2019-03-04 12:54 | NUR ---
Dr. Branch evaluating patient at bedside.
[2019-03-04] MEDS ORDERED: MORPHINE SULFATE 4 MG/ML SYR IM ONE ×2 (13:00→14:25)
--- NOTE | 2019-03-04 13:07 | NUR ---
lab at bedside.
[2019-03-04 13:20] LABS: BASOPHILS % (AUTO) 0.2 % (0.0-2.0); EOSINOPHILS # (AUTO) 0.3 K/uL (0-0.4); EOSINOPHILS % (AUTO) 2.5 % (0.0-4.0); HEMATOCRIT 45.2 % (36-48); HEMOGLOBIN 14.5 g/dL (12.0-16.0); LYMPHOCYTES # (AUTO) 1.8 K/uL (2.5-16.5); LYMPHOCYTES % (AUTO) 15.1 % (20.5-51.1); MEAN CORPUSCULAR HEMOGLOBIN 29 pg (27-31); MEAN CORPUSCULAR HGB CONC 32 g/dL (33-37); MONOCYTES # (AUTO) 0.5 K/uL (0.8-1.0); MONOCYTES % (AUTO) 4.5 % (1.7-9.3); NEUTROPHILS # (AUTO) 9.2 K/uL (1.8-7.7); NEUTROPHILS % (AUTO) 77.7 % (42.2-75.2); PLATELET COUNT (AUTO) 265 K/uL (140-450); RED BLOOD CELL COUNT(AUTO) 5.08 MIL/uL (4.20-5.40); RED CELL DISTRIBUTION WIDTH 13.9 % (11.6-13.7); WHITE BLOOD COUNT (AUTO) 11.8 K/uL (4.8-10.8)
[2019-03-04 13:28] LABS: ANION GAP 14.3 (8-16); CARBON DIOXIDE 28.5 mmol/L (21-32); CREATININE 1.1 mg/dL (0.6-1.3); POTASSIUM 3.8 mmol/L (3.5-5.1)
[2019-03-04 13:34] LABS: ALBUMIN 4.1 g/dL (3.4-5.0); TOTAL BILIRUBIN 0.5 mg/dL (0.0-1.0)
--- NOTE | 2019-03-04 13:34 | NUR ---
PT TAKEN TO CT VIA WHEELCHAIR BY RESTAURANT ASSOCIATE
--- NOTE | 2019-03-04 15:00 | NUR ---
NOTIFIED DR SANCHES OF PT'S B/P: , 98. NO FURTHER ORDERS AT THIS TIME.
[2019-03-04 16:29] VITALS: BP 184/90
== END 2019-03-04 16:29 | disposition home or self-care (01) ==
LOC: MED 12:24
DX: R11.2 Nausea with vomiting, unspecified (principal); R10.12 Left upper quadrant pain; R19.7 Diarrhea, unspecified; J44.9 Chronic obstructive pulmonary disease, unspecified; I11.0 Hypertensive heart disease with heart failure; I50.9 Heart failure, unspecified; K21.9 Gastro-esophageal reflux disease without esophagitis; Z86.79 Personal history of other diseases of the circulatory system; Z79.899 Other long term (current) drug therapy; Z88.0 Allergy status to penicillin; Z88.5 Allergy status to narcotic agent; Z88.1 Allergy status to other antibiotic agents; Z88.8 Allergy status to other drugs, medicaments and biological substances
CPT/HCPCS: 36415; 74176; 80053; 81002; 81025; 83690; 85025; 96372; 99284; J1885; J2270; Q0162

== ENCOUNTER 2019-03-04 20:36 | Emergency (ER) | payer OTHER ==
[~2019-03-04] VITALS: Ht 162.6 cm; Wt 122.0 kg
[2019-03-04 20:38] VITALS: BP 187/115
--- NOTE | 2019-03-04 20:43 | NUR ---
53 Y/O F BIB JESSICA WITH C/O RLQ ABOMINAL PAIN X1DAY. 10/10 PAIN, SHARP AND CONSTANT. +N/V/D AND CHILLS. PT CRYING AND MOANING IN PAIN, INCONSABLE. PT HAS CHRONIC BACK PAIN. UNABLE TO LIE FLAT. PT SEEN TODAY IN ER AND SENT HOME WITH ZOFRAN BUT PT HAS YET TO FILL PRESCRIPTION. PAIN UNCONTROLLABLE AT HOME. RLQ TENDER TO TOUCH. ERMD NOTIFIED. FAMILY AT BEDSIDE. WILL CONTINUE TO MONITOR.
--- NOTE | 2019-03-04 20:44 | NUR ---
TO ED 04, REPORT TO TORRES ALMARAZ.
--- NOTE | 2019-03-04 20:48 | NUR ---
DR. MARIO AT BEDSIDE.
--- NOTE | 2019-03-04 20:50 | NUR ---
PT HYPERTENSIVE, BP 197/108. DR. MARIO MADE AWARE.
[2019-03-04] MEDS ORDERED: fentaNYL 0.05 MG/ML VIAL IVP ONE (20:55)
[2019-03-04] MEDS ORDERED: ONDANSETRON 4 MG/2 ML VIAL IVP ONE (20:55)
[2019-03-04] MEDS ORDERED: LORazepam 2 MG/ML VIAL IVP ONE (21:10)
--- NOTE | 2019-03-04 22:13 | NUR ---
PT O2 SATURATION IS AT 89-91%. PT PLACED ON O2 AT 3 L VIA NASAL CANNULA, O2 SATURATION NOW AT 97%.
[2019-03-04 22:34] VITALS: BP 162/91
--- NOTE | 2019-03-04 22:34 | NUR ---
Patient discharged with v/s stable. Written and verbal after care instructions given and explained. Patient verbalized understanding. Wheel Chair Assisted with to car. All questions addressed prior to discharge. Advised to follow up with PMD.
== END 2019-03-04 22:34 | disposition home or self-care (01) ==
LOC: MED 20:36
DX: R10.9 Unspecified abdominal pain (principal); R11.2 Nausea with vomiting, unspecified; F11.20 Opioid dependence, uncomplicated; I50.9 Heart failure, unspecified; I11.0 Hypertensive heart disease with heart failure; J44.9 Chronic obstructive pulmonary disease, unspecified; K21.9 Gastro-esophageal reflux disease without esophagitis; Z90.49 Acquired absence of other specified parts of digestive tract; Z79.899 Other long term (current) drug therapy; Z88.0 Allergy status to penicillin; Z88.5 Allergy status to narcotic agent; Z88.1 Allergy status to other antibiotic agents; Z88.8 Allergy status to other drugs, medicaments and biological substances
CPT/HCPCS: 96374; 96375; 99283; J2060; J2405; J3010

== ENCOUNTER 2021-03-10 01:57 | Emergency (ER) | payer OTHER ==
[~2021-03-10] VITALS: Ht 162.6 cm; Wt 131.5 kg
[~2021-03-10 01:57] MED LIST changes: +ALBU-118 IH; -ALBU-136 IH; +CLON-1170 PO; -CLON0.2T43 PO
[2021-03-10 02:06] VITALS: BP 188/91
--- NOTE | 2021-03-10 02:12 | NUR ---
Pt taken to bed 9 via w/c
[2021-03-10] MEDS ORDERED: NACL 0.9% 1,000 ML IV ONE (02:15)
--- NOTE | 2021-03-10 02:30 | NUR ---
PT. IS A 55 Y/O FEMALE THAT CAME INTO ED WITH C/O OF N/V/D. SHE STATES IT STARTED AROUND 6PM OF YESTERDAY. PT. ALSO STATES THAT SHE HAS LEFT SIDE ABDOMINAL PAIN AND WHEN ASKED TO DESCRIBE IT SHE STATED. "EVERYWHERE ON MY LEFT SIDE ABDOMEN." PT. RATES HER PAIN AT A 4/10 ON THE PAIN SCALE. SKIN IS PINK/WARM/DRY; AAOX4 WITH EVEN AND STEADY GAIT; HR EVEN AND REGULAR; PT DENIES ANY FEVER, CP, SOB, OR COUGH AT THIS TIME; VSS; PATIENT POSITIONED FOR COMFORT; HOB ELEVATED; BEDRAILS UP X2; BED DOWN. ER MD MADE AWARE OF PT STATUS. PMH: COPD, GERD, HF, HTN, OPIOD DEPENDENCE ALLERGIES: SEE ALLERGY LIST
--- NOTE | 2021-03-10 02:31 | NUR ---
LAB AT BEDSIDE FOR BLOOD DRAW.
[2021-03-10] MEDS ORDERED: ONDANSETRON 4 MG/2 ML VIAL IVP ONE (02:35)
[2021-03-10 02:44] LABS: BASOPHILS % (AUTO) 0.4 % (0.0-2.0); EOSINOPHILS # (AUTO) 0.1 K/uL (0-0.4); EOSINOPHILS % (AUTO) 1.1 % (0.0-4.0); HEMATOCRIT 44.4 % (36-48); HEMOGLOBIN 14.4 g/dL (12.0-16.0); LYMPHOCYTES # (AUTO) 1.9 K/uL (2.5-16.5); LYMPHOCYTES % (AUTO) 15.6 % (20.5-51.1); MEAN CORPUSCULAR HEMOGLOBIN 28 pg (27-31); MEAN CORPUSCULAR HGB CONC 33 g/dL (33-37); MEAN CORPUSCULAR VOLUME 85.6 fL (80-94); MONOCYTES # (AUTO) 0.8 K/uL (0.8-1.0); MONOCYTES % (AUTO) 6.6 % (1.7-9.3); NEUTROPHILS # (AUTO) 9.5 K/uL (1.8-7.7); NEUTROPHILS % (AUTO) 76.3 % (42.2-75.2); PLATELET COUNT (AUTO) 307 K/uL (140-450); RED BLOOD CELL COUNT(AUTO) 5.18 MIL/uL (4.20-5.40); RED CELL DISTRIBUTION WIDTH 14.7 % (11.6-13.7); WHITE BLOOD COUNT (AUTO) 12.4 K/uL (4.8-10.8)
[2021-03-10] MEDS ORDERED: KETOROLAC 15 MG/ML VIAL IVP ONE (02:55)
[2021-03-10 02:56] LABS: ANION GAP 17.8 (8-16); CARBON DIOXIDE 27.7 mmol/L (21-32); CREATININE 1.6 mg/dL (0.6-1.3); POTASSIUM 3.5 mmol/L (3.5-5.1)
[2021-03-10] MEDS ORDERED: KETOROLAC 15 MG/ML VIAL ONE (02:56)
[2021-03-10 03:49] LABS: TOTAL BILIRUBIN 0.5 mg/dL (0.0-1.0)
[2021-03-10 03:50] LABS: ALBUMIN 3.8 g/dL (3.4-5.0)
--- NOTE | 2021-03-10 04:00 | NUR ---
PT. APPEARS TO BE AGITATED AND ANXIOUS, STATING "I'M ANXIOUS, FEELS LIKE MY INSIDES ARE GOING TO COME OUT." PT. ALSO RESTLESS AND KICKING HER FEET ON BED.
--- NOTE | 2021-03-10 04:16 | NUR ---
Dr. Huff examining patient.
[2021-03-10] MEDS ORDERED: LORazepam 2 MG/ML VIAL IVP ONE ×2 (04:20→05:50)
--- NOTE | 2021-03-10 04:42 | NUR ---
CT AT BEDSIDE.
--- NOTE | 2021-03-10 04:47 | NUR ---
Rafi soriano in [facility] - 03/10/21 at 0452 by GWYN PT. BACK FROM CT.
--- NOTE | 2021-03-10 05:04 | NUR ---
PT RETURN TO BED 9
[2021-03-10 05:22] LABS: APPEARANCE,URINE SL CLOUDY (CLEAR); BILIRUBIN,URINE 1+ (NEGATIVE); BLOOD, URINE TRACE-I (NEGATIVE); COLOR,URINE YELLOW (YELLOW); LEUKOCYTE ESTERASE ,URINE NEGATIVE (NEGATIVE); NITRITE, URINE NEGATIVE (NEGATIVE); UGLUCOSE NEGATIVE (NEGATIVE)
[2021-03-10 05:31] LABS: RBC,URINE 0-5 /HPF (0-5); WBC,URINE 0-5 /HPF (0-5)
--- NOTE | 2021-03-10 05:44 | NUR ---
KATHRIN CLAY AT BEDSIDE
[2021-03-10] MEDS ORDERED: DICYCLOMINE HCL LIQUID 20 MG, ALUMINUM HYD/MAG/SIMETHICONE 30 ML, LIDOCAINE VISCOUS 2% ... PO ONE ×3 (05:50)
[2021-03-10] MEDS ORDERED: LIDOCAINE VISCOUS 2% 20 ML UDC ONE (06:05)
[2021-03-10] MEDS ORDERED: ALUMINUM HYD/MAG/SIMETHICONE 30 ML UDC ONE (06:05)
[2021-03-10] MEDS ORDERED: DICYCLOMINE HCL LIQUID 10 MG/5 ML UDC ONE (06:05)
[2021-03-10 06:22] VITALS: BP 172/103
--- NOTE | 2021-03-10 06:22 | NUR ---
Patient discharged with v/s stable. Written and verbal after care instructions given and explained. Patient verbalized understanding. Ambulatory with steady gait. All questions addressed prior to discharge. Advised to follow up with PMD.
== END 2021-03-10 06:22 | disposition home or self-care (01) ==
LOC: MED 01:57
DX: R19.7 Diarrhea, unspecified (principal); E86.0 Dehydration; N17.9 Acute kidney failure, unspecified; J44.9 Chronic obstructive pulmonary disease, unspecified; I11.0 Hypertensive heart disease with heart failure; I50.9 Heart failure, unspecified; I47.1 Supraventricular tachycardia; K21.9 Gastro-esophageal reflux disease without esophagitis; Z79.899 Other long term (current) drug therapy; Z88.0 Allergy status to penicillin; Z88.1 Allergy status to other antibiotic agents; Z88.5 Allergy status to narcotic agent
CPT/HCPCS: 36415; 74177; 80053; 81001; 82150; 83690; 85025; 87086; 96361; 96374; 96375; 96376; 99285; J1885; J2060; J2405; J7030; Q9967

== ENCOUNTER 2021-04-23 23:28 | Emergency (ER) | payer OTHER ==
[~2021-04-23] VITALS: Ht 162.6 cm; Wt 127.0 kg
[2021-04-23 23:40] VITALS: BP 166/133
[2021-04-24 01:45] LABS: BASOPHILS % (AUTO) 0.2 % (0.0-2.0); HEMATOCRIT 45.1 % (36-48); HEMOGLOBIN 14.7 g/dL (12.0-16.0); LYMPHOCYTES # (AUTO) 1.2 K/uL (2.5-16.5); LYMPHOCYTES % (AUTO) 10.3 % (20.5-51.1); MEAN CORPUSCULAR HEMOGLOBIN 28 pg (27-31); MEAN CORPUSCULAR HGB CONC 33 g/dL (33-37); MONOCYTES # (AUTO) 0.3 K/uL (0.8-1.0); MONOCYTES % (AUTO) 2.5 % (1.7-9.3); NEUTROPHILS # (AUTO) 10.4 K/uL (1.8-7.7); PLATELET COUNT (AUTO) 331 K/uL (140-450); RED BLOOD CELL COUNT(AUTO) 5.31 MIL/uL (4.20-5.40); WHITE BLOOD COUNT (AUTO) 11.9 K/uL (4.8-10.8)
--- NOTE | 2021-04-24 01:53 | NUR ---
12 LEAD EKG DONE
[2021-04-24 02:11] LABS: CREATININE 1.2 mg/dL (0.6-1.3); TOTAL BILIRUBIN 0.7 mg/dL (0.0-1.0)
--- NOTE | 2021-04-24 02:15 | NUR ---
56 YO/F BIB SELF W CO OF CONSTANT NON-RADIATING ABDOMINAL PAIN SHARP 10/10, AND N/V/D THAT BEGAN YESTERDAY AT 1400. PATIENT DENIES ANY FEVERS, BLOOD IN VOMIT OR BOWEL. BOWEL SOUNDS PRESENT, ABDOMEN TENDER TO TOUCH. PAIENT LAYING IN BED LOCKED IN LOWEST POSITION, X2 SIDERAILS UP FOR PATIENT SAFETY. NAD NOTED, WILL CONTINUE TO MONITOR. PMH: HTN, ASTHMA, GERD, COPD, DVT, PE ALLERGIES: PENICILLINS, CODEINE, ERYTHROMYCIN, HYDROMORPHONE, LEVOFLOXACIN, OXYCODONE
[2021-04-24] MEDS ORDERED: MORPHINE SULFATE 4 MG/ML SYR IVP ONE (02:20)
[2021-04-24] MEDS ORDERED: NACL 0.9% 1,000 ML IV ONE (02:20)
[2021-04-24] MEDS ORDERED: ONDANSETRON 4 MG/2 ML VIAL IVP ONE (02:20)
--- NOTE | 2021-04-24 02:40 | NUR ---
PATIENT UNABLE TO PROVIDE URINE AT THIS TIME D/T PAIN. REPORTS SHE WILL TRY LATER.
[2021-04-24 02:43] LABS: POTASSIUM 3.6 mmol/L (3.5-5.1)
[2021-04-24 02:44] LABS: ALBUMIN 3.8 g/dL (3.4-5.0); ANION GAP 11.6 (8-16)
--- NOTE | 2021-04-24 04:05 | NUR ---
PATIENT CO OF ABDOMINAL PAIN. ERMD MADE AWARE, ERMD TO SEE PATIENT, NO NEW ORDERS AT THIS TIME.
[2021-04-24] MEDS ORDERED: diphenhydrAMINE 50 MG/ML VIAL IVP ONE (04:30)
[2021-04-24] MEDS ORDERED: HALOPERIDOL IM 5 MG/ML VIAL IVP ONE (04:30)
--- NOTE | 2021-04-24 04:50 | NUR ---
Patient reports unable to provide urine sample at this time, will attempt at a later time.
[2021-04-24] MEDS ORDERED: CIPR500T4 PO (05:47)
[2021-04-24] MEDS ORDERED: METR500T1 PO (05:48)
--- NOTE | 2021-04-24 06:55 | NUR ---
CALLED PATIENT'S YESICA LOUISA PER PATIENT'S REQUEST FOR TELEPHONE LINES REPAIRER FOR DISCHARGE. PATIENT ETA 2MINUTES.
--- NOTE | 2021-04-24 06:55 | NUR ---
PATIENT UNABLE TO PROVIDE URINE.
[2021-04-24 06:57] VITALS: BP 125/76
--- NOTE | 2021-04-24 06:57 | NUR ---
Patient discharged with v/s stable. Written and verbal after care instructions given and explained. Patient alert, oriented and verbalized understanding of instructions. Ambulatory with steady gait. All questions addressed prior to discharge. ID band removed. Patient advised to follow up with PMD. Rx of CIPRO, FLAGYL given. Patient educated on indication of medication including possible reaction and side effects. Opportunity to ask questions provided and answered.
== END 2021-04-24 06:57 | disposition home or self-care (01) ==
LOC: MED 23:28
DX: K57.92 Diverticulitis of intestine, part unspecified, without perforation or abscess without bleeding (principal); R11.2 Nausea with vomiting, unspecified; J44.9 Chronic obstructive pulmonary disease, unspecified; I51.9 Heart disease, unspecified; K21.9 Gastro-esophageal reflux disease without esophagitis; Z88.0 Allergy status to penicillin; Z88.5 Allergy status to narcotic agent; Z88.1 Allergy status to other antibiotic agents; Z88.8 Allergy status to other drugs, medicaments and biological substances
CPT/HCPCS: 71045; 74176; 80053; 83690; 84484; 85025; 93005; 96361; 96374; 96375; 99285; J1200; J1630; J2270; J2405; J7030

== ENCOUNTER 2021-05-14 22:42 | Emergency (ER) | payer OTHER ==
[~2021-05-14] VITALS: Ht 162.6 cm; Wt 126.1 kg
[~2021-05-14 22:42] MED LIST changes: +CIPR500T4 PO; +METR500T1 PO
[2021-05-14 23:05] VITALS: BP 171/90
--- NOTE | 2021-05-14 23:08 | NUR ---
TO LOBBY A/W BED AMBULATORY
--- NOTE | 2021-05-14 23:25 | NUR ---
TO BED 7
--- NOTE | 2021-05-14 23:35 | NUR ---
PT BIBS FOR C/C N/V/D FOR 4 DAYS. PT REPORTS TAKING PO ZOFRAN AT HOME WITHOUT RELIEF. STATES THIS HAS HAPPENED MULTIPLE TIMES IN THE PAST, AND WAS TREATED FOR DIVERTICULITIS (ALTHOUGH DENIES BEING DIAGNOSED). DENIES BLOOD IN STOOL. DENIES FEVER, CHILLS, CP OR SOB. PLACED ON CORPORATE TAX PREPARER.
--- NOTE | 2021-05-14 23:38 | NUR ---
PT AMBULATED TO RESTROOM WITH EVEN AND STEADY GAIT.
[2021-05-15] MEDS ORDERED: NACL 0.9% 1,000 ML IV SCH
[2021-05-15 00:29] LABS: BASOPHILS % (AUTO) 0.3 % (0.0-2.0); EOSINOPHILS % (AUTO) 0.3 % (0.0-4.0); HEMATOCRIT 45.5 % (36-48); HEMOGLOBIN 14.9 g/dL (12.0-16.0); LYMPHOCYTES % (AUTO) 15.4 % (20.5-51.1); MEAN CORPUSCULAR HEMOGLOBIN 28 pg (27-31); MEAN CORPUSCULAR HGB CONC 33 g/dL (33-37); MEAN CORPUSCULAR VOLUME 84.8 fL (80-94); MONOCYTES # (AUTO) 0.7 K/uL (0.8-1.0); MONOCYTES % (AUTO) 5.2 % (1.7-9.3); NEUTROPHILS # (AUTO) 10.2 K/uL (1.8-7.7); NEUTROPHILS % (AUTO) 78.8 % (42.2-75.2); PLATELET COUNT (AUTO) 346 K/uL (140-450); RED BLOOD CELL COUNT(AUTO) 5.37 MIL/uL (4.20-5.40); RED CELL DISTRIBUTION WIDTH 14.9 % (11.6-13.7); WHITE BLOOD COUNT (AUTO) 12.9 K/uL (4.8-10.8)
[2021-05-15 01:36] LABS: ALBUMIN 3.8 g/dL (3.4-5.0); ANION GAP 14.8 (8-16); CARBON DIOXIDE 28.1 mmol/L (21-32); CREATININE 1.3 mg/dL (0.6-1.3); TOTAL BILIRUBIN 0.9 mg/dL (0.0-1.0)
[2021-05-15 01:38] LABS: POTASSIUM 2.9 mmol/L (3.5-5.1)
[2021-05-15] MEDS ORDERED: ONDANSETRON 4 MG/2 ML VIAL IVP ONE ×2 (02:15)
--- NOTE | 2021-05-15 02:16 | NUR ---
PT NOTED WITH +N/V. VERBAL ORDER KATHRIN KINGSTON FOR ZOFRAN 8MG IVP.
[2021-05-15] MEDS ORDERED: ONDANSETRON 4 MG/2 ML VIAL ONE (02:17)
--- NOTE | 2021-05-15 02:23 | NUR ---
PT TAKEN TO CT VIA [facility].
[2021-05-15] MEDS ORDERED: KETOROLAC 30 MG/ML VIAL IVP ONE ×2 (02:40)
[2021-05-15] MEDS ORDERED: PANTOPRAZOLE 40 MG INJ VIAL IVP ONE (02:40)
--- NOTE | 2021-05-15 02:40 | NUR ---
PT AMBULATED TO RESTROOM AND PROVIDED URINE SAMPLE. TAKEN TO LAB AND HAND GIVEN TO DONALD MUD JACK [employer]LE WORKER.
[2021-05-15] MEDS ORDERED: KETOROLAC 30 MG/ML VIAL ONE (02:41)
[2021-05-15 02:55] LABS: APPEARANCE,URINE CLEAR (CLEAR); BILIRUBIN,URINE NEGATIVE (NEGATIVE); BLOOD, URINE TRACE-I (NEGATIVE); COLOR,URINE YELLOW (YELLOW); LEUKOCYTE ESTERASE ,URINE NEGATIVE (NEGATIVE); NITRITE, URINE NEGATIVE (NEGATIVE); UGLUCOSE NEGATIVE (NEGATIVE)
[2021-05-15 02:59] LABS: RBC,URINE 0-5 /HPF (0-5); WBC,URINE 0-5 /HPF (0-5)
--- NOTE | 2021-05-15 03:15 | NUR ---
PT RESTING COMFORTABLY IN BED. PROVIDED ADDITIONAL WARM BLANKET. NO NOTED DISTRESS OR DISCOMFORT. WILL CONTINUE TO MONITOR.
--- NOTE | 2021-05-15 04:08 | NUR ---
PT NOTED TO BE +N/V. MADE AWARE. AWAITING NEW ORDERS.
[2021-05-15] MEDS ORDERED: PROCHLORPERAZINE 10 MG/2 ML VIAL IVP ONE (04:10)
[2021-05-15] MEDS ORDERED: POTASSIUM CHLORIDE 10 MEQ TABER PO ONE (04:40)
[2021-05-15] MEDS ORDERED: MORPHINE SULFATE 2 MG/ML SYR IVP ONE ×2 (04:55)
[2021-05-15] MEDS ORDERED: NACL 0.9% 1,000 ML IV ONE (04:55)
[2021-05-15] MEDS ORDERED: cefTRIAXone 1,000 MG VIAL ONE (05:01)
--- NOTE | 2021-05-15 05:15 | NUR ---
Patient appears to be resting comfortably in bed, EYES CLOSED. Vital Signs within normal limits. Respirations even and unlabored. NO SIGNS OF DISTRESS OR DISCOMFORT. WILL CONTINUE TO MONITOR.
[2021-05-15] MEDS ORDERED: CEPH500T PO (06:05)
[2021-05-15] MEDS ORDERED: PANT40EC PO (06:06)
[2021-05-15 06:20] VITALS: BP 113/78
--- NOTE | 2021-05-15 06:20 | NUR ---
Patient discharged with v/s stable. Written and verbal after care instructions given and explained. Patient alert, oriented and verbalized understanding of instructions. Ambulatory with steady gait. All questions addressed prior to discharge. ID band removed. Patient advised to follow up with PMD. Rx of CEPHALEXIN AND PROTONIX given. Patient educated on indication of medication including possible reaction and side effects. Opportunity to ask questions provided and answered.
== END 2021-05-15 06:20 | disposition home or self-care (01) ==
LOC: MED 22:42
DX: N39.0 Urinary tract infection, site not specified (principal); E87.6 Hypokalemia; R11.2 Nausea with vomiting, unspecified; R19.7 Diarrhea, unspecified; J45.909 Unspecified asthma, uncomplicated; K21.9 Gastro-esophageal reflux disease without esophagitis; I11.9 Hypertensive heart disease without heart failure; Z88.0 Allergy status to penicillin; Z88.5 Allergy status to narcotic agent; Z88.1 Allergy status to other antibiotic agents
CPT/HCPCS: 36415; 74176; 80053; 81001; 83690; 85025; 87086; 96361; 96365; 96375; 96376; 99285; C9113; J0696; J0780; J1885; J2270; J2405; J7030

== ENCOUNTER 2021-08-20 05:15 | Emergency (ER) | payer OTHER ==
[~2021-08-20] VITALS: Ht 161.3 cm; Wt 127.5 kg
[~2021-08-20 05:15] MED LIST changes: +CEPH500T PO; +PANT40EC PO
[2021-08-20 05:25] VITALS: BP 210/118
--- NOTE | 2021-08-20 05:33 | NUR ---
patient ambulatory to bed 9
--- NOTE | 2021-08-20 06:04 | NUR ---
REPORTS NAUSEA VOMITING AND DIARRHEA FOR THE PAST 9 HOURS. ALSO STATES SHE FELL EARLIER AND HIT HER HEAD. DENIES LOC AND DENIES ANY OTHER COMPLAINTS AT THIS TIME.
[2021-08-20 06:42] LABS: BASOPHILS % (AUTO) 0.2 % (0.0-2.0); EOSINOPHILS % (AUTO) 0.3 % (0.0-4.0); HEMATOCRIT 42.6 % (36-48); HEMOGLOBIN 14.1 g/dL (12.0-16.0); LYMPHOCYTES # (AUTO) 1.1 K/uL (2.5-16.5); LYMPHOCYTES % (AUTO) 12.3 % (20.5-51.1); MEAN CORPUSCULAR HEMOGLOBIN 28 pg (27-31); MEAN CORPUSCULAR HGB CONC 33 g/dL (33-37); MEAN CORPUSCULAR VOLUME 85.8 fL (80-94); MONOCYTES # (AUTO) 0.3 K/uL (0.8-1.0); MONOCYTES % (AUTO) 3.4 % (1.7-9.3); NEUTROPHILS # (AUTO) 7.3 K/uL (1.8-7.7); NEUTROPHILS % (AUTO) 83.8 % (42.2-75.2); PLATELET COUNT (AUTO) 275 K/uL (140-450); RED BLOOD CELL COUNT(AUTO) 4.96 MIL/uL (4.20-5.40); RED CELL DISTRIBUTION WIDTH 14.2 % (11.6-13.7); WHITE BLOOD COUNT (AUTO) 8.7 K/uL (4.8-10.8)
[2021-08-20] MEDS: NACL 0.9% 1,000 ML IV SCH (06:47)
[2021-08-20] MEDS: FAMOTIDINE 20 MG/2 ML VIAL IVP ONE (06:47)
[2021-08-20] MEDS: ONDANSETRON 4 MG/2 ML VIAL IVP ONE (06:47)
[2021-08-20] MEDS: MORPHINE SULFATE 2 MG/ML SYR IVP ONE (06:49)
--- NOTE | 2021-08-20 06:59 | NUR ---
PATIENT DESAT TO [id number] RA AT THIS TIME. PLACED ONTO 2LPM NC
--- NOTE | 2021-08-20 06:59 | NUR ---
URINE WALKED OVER TO LAB AT THIS [facility]
[2021-08-20 07:04] LABS: ALBUMIN 3.7 g/dL (3.4-5.0); ANION GAP 12.1 (8-16); CARBON DIOXIDE 29.6 mmol/L (21-32); POTASSIUM 3.7 mmol/L (3.5-5.1); TOTAL BILIRUBIN 0.7 mg/dL (0.0-1.0)
[2021-08-20 07:05] LABS: APPEARANCE,URINE CLEAR (CLEAR); BILIRUBIN,URINE NEGATIVE (NEGATIVE); BLOOD, URINE NEGATIVE (NEGATIVE); LEUKOCYTE ESTERASE ,URINE NEGATIVE (NEGATIVE); NITRITE, URINE NEGATIVE (NEGATIVE); PH,URINE 8.5 (5.0-9.0); UGLUCOSE NEGATIVE (NEGATIVE)
--- NOTE | 2021-08-20 07:18 | NUR ---
RECIEVED REPORT FROM TAMY AT THIS TIME
--- NOTE | 2021-08-20 07:19 | NUR ---
PT RESTING COMFORTABLY IN BED, BOTH RAILS UP AND IN LOWEST SETTING. PT DEMEABNOR IS CALM AND BREATHING UNLABORED.
[2021-08-20 07:36] LABS: RBC,URINE 0-5 /HPF (0-5); WBC,URINE 0-5 /HPF (0-5)
[2021-08-20 07:37] LABS: COLOR,URINE YELLOW (YELLOW)
[2021-08-20] MEDS ORDERED: ONDANSETRON 4 MG/2 ML VIAL IVP ONE (07:45)
--- NOTE | 2021-08-20 07:47 | NUR ---
IV NO LONGER WORKING, PT WAS ABLE TO RECIEVE 150ML OF BOLUS. ER MD MADE AWARE.
[2021-08-20] MEDS ORDERED: ONDA-188 PO (07:50)
[2021-08-20] MEDS: ONDANSETRON 4 MG ODT PO ONE (07:55)
[2021-08-20] MEDS: DIPHENOXYLATE /ATROPINE 2.5 MG TAB PO ONE (07:58)
[2021-08-20 08:34] VITALS: BP 157/105
--- NOTE | 2021-08-20 08:35 | NUR ---
Patient discharged with v/s stable. Written and verbal after care instructions given and explained. Patient alert, oriented and verbalized understanding of instructions. Ambulatory with steady gait. All questions addressed prior to discharge. ID band removed. Patient advised to follow up with PMD. Rx of Ondansetron given. Patient educated on indication of medication including possible reaction and side effects. Opportunity to ask questions provided and answered. Pt has calm demeanor, breathing unlabored, pt walks unassisted with steady gait.
== END 2021-08-20 08:35 | disposition home or self-care (01) ==
LOC: MED 05:15
DX: R11.2 Nausea with vomiting, unspecified (principal); R19.7 Diarrhea, unspecified; G89.29 Other chronic pain; R10.10 Upper abdominal pain, unspecified; J44.9 Chronic obstructive pulmonary disease, unspecified; K21.9 Gastro-esophageal reflux disease without esophagitis; I11.0 Hypertensive heart disease with heart failure; I50.9 Heart failure, unspecified; I47.1 Supraventricular tachycardia; Z90.49 Acquired absence of other specified parts of digestive tract; Z79.899 Other long term (current) drug therapy; Z88.0 Allergy status to penicillin; Z88.1 Allergy status to other antibiotic agents; Z88.5 Allergy status to narcotic agent; Z88.8 Allergy status to other drugs, medicaments and biological substances
CPT/HCPCS: 36415; 80053; 81001; 83690; 85025; 96361; 96374; 96375; 99284; J2270; J2405; J3490; J7030; Q0162